=== PATIENT | female | born 1985 | race Hispanic/Latino ===

== ENCOUNTER 2020-05-10 14:03 | Outpatient (CLI) | payer OTHER ==
--- NOTE | 2020-05-10 15:26 | RAD ---
PA AND LATERAL VIEWS CHEST: HISTORY: Pneumonia of the right middle lobe due to infectious organism. COMPARISON: None. FINDINGS: The heart size is normal. The lungs are expanded without lobar consolidation, pneumothoraces, or ple ural effusions. IMPRESSION: No radiographic evidence of acute cardiopulmonary process. POS: OFF
== END 2020-05-10 14:04 | disposition home or self-care (01) ==
LOC: BICRAD 14:03
PROVIDERS: ATTEND Physician Assistant
DX: J18.9 Pneumonia, unspecified organism (principal)
CPT/HCPCS: 71046

== ENCOUNTER 2020-09-24 20:31 | Emergency (ER) | payer OTHER ==
[2020-09-24 21:10] LABS: Bilirubin Negative (Negative); Blood, Urine Negative (Negative); Clarity Clear (Clear); Glucose, Urine (Dipstick) Normal (Negative); Ketone, Urine Negative (Negative); Leukocyte Negative Leu/uL (Negative); Nitrite Negative (Negative); Protein, Urine (Dipstick) Negative (Neg-Trace); Specific Gravity, Urine 1.015 (1.002-1.036); Urobilinogen Normal mg/dL (Less than 2)
[2020-09-24 21:22] LABS: Amphetamine Not Detected (NotDetected); Barbiturates Screen Not Detected (NotDetected); Benzodiazepine Screen Not Detected (NotDetected); Cocaine Metabolite Screen Not Detected (NotDetected); Medtox Control Line Valid? VALID (VALID); Medtox Reader # READER 4; Methadone Not Detected (NotDetected); Methamphetamine Not Detected (NotDetected); Opiate Screen Not Detected (NotDetected); Oxycodone Screen Not Detected (NotDetected); Phencyclidine (PCP) Not Detected (NotDetected); THC/Cannabinoid Screen Not Detected (NotDetected); Tricyclic Screen Not Detected (NotDetected)
[2020-09-24 21:25] LABS: #Basophils 0.1 thou/uL (0.0-0.2); #Lymphocytes 3.3 thou/uL (1.20-3.40); #Monocytes 0.8 thou/uL (0.11-0.59); #Neutrophils 6.5 thou/uL (1.40-6.50); %Basophils 0.7 % (0.0-1.0); %Eosinophils 0.2 % (0.0-10.0); %Lymphocytes 30.7 % (21.0-51.0); %Monocytes 7.1 % (0.0-10.0); %Neutrophils 61.3 % (42.0-75.0); Hemoglobin 13.6 g/dL (12.0-16.0); Mean Corpuscular HGB CONC 33.5 g/dL (32.0-36.0); Mean Corpuscular Hemoglobin 30.9 pg (27.0-31.0); Mean Corpuscular Volume 92.4 fL (78.0-98.0); Mean Platelet Volume 7.9 fL (7.4-10.4); Platelet Count 295 thou/uL (130-400); RBC Distribution Width 13.2 % (11.5-14.5); Red Blood Cell (RBC) Count 4.38 mill/uL (4.20-5.40); White Blood Cell (WBC) Count 10.6 thou/uL (4.8-10.8)
[2020-09-24 21:45] LABS: BHCG - Serum Negative (NEGATIVE); Pregs Control Background? CLEAR/WHITE (CLR/WHITE); Pregs Control Bar Appear? YES (CONTROL BAR)
[2020-09-24 21:46] LABS: ALT (SGPT) 15 U/L (8-55); AST (SGOT) 21 U/L (5-34); Albumin 4.1 g/dL (3.5-5.0); Alkaline Phosphatase 71 U/L (40-110); Anion Gap 14 mmol/L (10-20); BUN (Urea Nitrogen) 11 mg/dL (7.0-18.7); Bilirubin, Total 0.4 mg/dL (0.2-1.2); CK (CPK) 482 U/L (29-168); Calc. Creatinine Clearance 0 mL/min (70-130); Calcium 9.3 mg/dL (7.8-10.44); Carbon Dioxide 24 mmol/L (22-29); Chloride 105 mmol/L (98-107); Globulin 3.1 g/dL (2.4-3.5); Glucose 91 mg/dL (70-105); Potassium 3.7 mmol/L (3.5-5.1); Protein, Total 7.2 g/dL (6.0-8.3); Sodium 139 mmol/L (136-145)
== END 2020-09-25 00:57 | disposition home or self-care (01) ==
LOC: ERS 20:31
DX: M62.82 Rhabdomyolysis (principal); E06.3 Autoimmune thyroiditis; Z79.899 Other long term (current) drug therapy
CPT/HCPCS: 36415; 80306; 84703; 93005